=== PATIENT | male | born 1970 | race Two or more races ===

== ENCOUNTER 2025-02-08 12:40 | Day surgery (SDC) | payer MEDICAID, SELFPAY ==
[2025-02-07 13:54] VITALS: BMI 25.1
[2025-02-08] VITALS (10 sets, daily range): BP systolic 111–161; BP diastolic 77–93; PULSE 66–86; RESP 14–19; TEMP 36.9–37.2; O2SAT 93–97; BMI 27.4
[2025-02-08] MEDS: RINGERS LACTATED 1000 ML 1,000 ML 100 ML IV (14:36)
[2025-02-08] MEDS: MIDAZOLAM INJ 1 MG/ML VIAL 2 ML (ASD USE ONLY) 2 MG IVP (14:40)
[2025-02-08] MEDS: fentaNYL CIT INJ 50 mCg/ML AMP 2ML (ASD USE ONLY) IVP (14:40)
== END 2025-02-08 15:37 | disposition home or self-care (01) ==
PROVIDERS: PCP Nurse Practitioner Family; Referring Provider Surgery; Visit Provider Surgery
PROC: 0DBE8ZX Excision of Large Intestine, Via Natural or Artificial Opening Endoscopic, Diagnostic (ICD-10-PCS; CPT 45380; principal; 2025-02-08 14:30)
DX: K62.5 Hemorrhage of anus and rectum (principal); I10 Essential (primary) hypertension; E11.65 Type 2 diabetes mellitus with hyperglycemia
CPT/HCPCS: 45378; J2250; J3010; J7120